=== PATIENT | male | born 1945 | race Asian ===

== ENCOUNTER 2017-03-02 05:27 | Emergency (ER) | payer OTHER ==
[~2017-03-02] VITALS: Ht 165.1 cm; Wt 72.6 kg
[~2017-03-02 05:27] MED LIST: [UNRECOGNIZED DRUG - REMARK]
--- NOTE | 2017-03-02 05:41 | NUR ---
BB SELF C/O ABD PAIN SINCE 0200 +N/V. PT AOX3 RR EVEN AND UNLABORED. NO SOB NOTED. NAD NOTED. PT NOT DIAPHORETIC AT THIS TIME. PT GOWNED AND PLACED ON MONITOR WAITING FOR MD JEFFREY.
--- NOTE | 2017-03-02 05:55 | NUR ---
IV STARTED ON RIGHT AC, GOOD BLOOD RETURNED, PATENT. 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
[2017-03-02] MEDS ORDERED: MORPHINE SULFATE INJ 4 MG/ML DISP.SYRIN ONE ×2 (06:05→06:29)
[2017-03-02] MEDS ORDERED: ONDANSETRON HCL/PF 4 MG/2 ML VIAL ONE (06:05)
--- NOTE | 2017-03-02 06:14 | NUR ---
LAB AT BEDSIDE FOR BLOOD CX DRAW
--- NOTE | 2017-03-02 06:28 | NUR ---
DR CHISHOLM AT BEDSIDE FOR EVAL.
[2017-03-02 06:30] LABS: BASOPHILS % (AUTO) 0.2 % (0.0-2.0); EOSINOPHILS % (AUTO) 0.2 % (0.0-6.0); HEMATOCRIT 47 % (39-51); HEMOGLOBIN 15.6 g/dL (13.5-17.5); LYMPHOCYTES # (AUTO) 1.4 /CMM (0.8-4.8); LYMPHOCYTES % (AUTO) 13.6 % (20.0-44.0); MEAN CORPUSCULAR HEMOGLOBIN 32 PG (26.0-33.0); MEAN CORPUSCULAR HGB CONC 33 g/dl (31.0-36.0); MEAN CORPUSCULAR VOLUME 97 fL (80-96); MONOCYTES # (AUTO) 0.5 /CMM (0.1-1.30); MONOCYTES % (AUTO) 4.8 % (2.0-12.0); NEUTROPHILS # (AUTO) 8.3 /CMM (1.8-8.9); NEUTROPHILS % (AUTO) 81.2 % (43.0-81.0); PLATELET COUNT (AUTO) 239 /CMM (150-450); RDW COEFFICIENT OF VARIATION 12.6 (11.5-15.0); RED BLOOD CELL COUNT(AUTO) 4.86 MIL/uL (4.5-6.0); WHITE BLOOD COUNT (AUTO) 10.2 K/uL (4.3-11.0)
[2017-03-02] MEDS ORDERED: IV NS 0.9% 1,000 ML BAG IV ONE ×2 (06:30→09:00)
[2017-03-02] MEDS ORDERED: ONDANSETRON HCL/PF 4 MG/2 ML VIAL IVP ONE (06:30)
[2017-03-02] MEDS ORDERED: MORPHINE SULFATE INJ 2 MG/ML DISP.SYRIN IV ONE ×2 (06:30→07:00)
[2017-03-02 06:42] LABS: CALCIUM, SERUM 9.8 mg/dL (8.5-10.1); CARBON DIOXIDE 31 mmol/L (21-32); CHLORIDE 102 mmol/L (98-107); GLUCOSE 163 mg/dL (74-106); POTASSIUM 3.6 mmol/L (3.5-5.1); SODIUM SERUM 142 mmol/L (136-145); UREA NITROGEN, BLOOD 13 mg/dL (7-18)
[2017-03-02 06:45] LABS: INR 0.95 (0.87-1.13); PROTHROMBIN TIME 9.9 SECS (9.5-12.7)
[2017-03-02 06:50] LABS: TROPONIN I < 0.017 ng/mL (0.00-0.056)
[2017-03-02 06:55] LABS: ALANINE AMINOTRANSFERASE 53 U/L (12-78); ALBUMIN 4.4 g/dL (3.4-5.0); ALKALINE PHOSPHATASE 59 U/L (46-116); ASPARTATE AMINOTRANSFERASE 30 U/L (15-37); BILIRUBIN,DIRECT 0.1 mg/dL (0.0-0.2); BILIRUBIN,TOTAL 0.6 mg/dL (0.2-1.0); LIPASE 148 U/L (73-393); TOTAL PROTEIN, SERUM 7.8 g/dL (6.4-8.2)
[2017-03-02] MEDS ORDERED: CT SWABBABLE VALVE TRANS SET 1 EA INFUS.SET MC ONE (06:57)
[2017-03-02] MEDS ORDERED: IOHEXOL-300 100 ML VIAL IV ONE (06:57)
[2017-03-02] MEDS ORDERED: IV NS 0.9% 500 ML IV ONE (06:57)
--- NOTE | 2017-03-02 07:02 | NUR ---
PT TO CT.
--- NOTE | 2017-03-02 07:10 | NUR ---
PT RETURNED FROM CT.
--- NOTE | 2017-03-02 07:22 | NUR ---
URINE COLLECTED. 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
--- NOTE | 2017-03-02 07:26 | NUR ---
REPORT GIVEN TO NINO PEREYRA FOR REGNIA.
--- NOTE | 2017-03-02 08:00 | NUR ---
RESTING QUIETLY, ASLEEP BUT EASILY AROUSABLE. NAD NOTED.
[2017-03-02 08:16] LABS: APPEARANCE,URINE SL CLOUDY (CLEAR); BILIRUBIN,URINE NEGATIVE (NEGATIVE); BLOOD, URINE NEGATIVE Ery/uL (NEGATIVE); COLOR,URINE YELLOW (YELLOW); KETONES,URINE NEGATIVE (NEGATIVE); LEUKOCYTE ESTERASE ,URINE NEGATIVE (NEGATIVE); NITRITE, URINE NEGATIVE (NEGATIVE); PH,URINE 7.5 (5.0-8.0); PROTEIN,URINE NEGATIVE (NEGATIVE); UGLUCOSE NEGATIVE (NEGATIVE); UROBILINOGEN,URINE 0.2 EU/dL (0.2)
--- NOTE | 2017-03-02 10:00 | NUR ---
RESTING QUIETLY, NAD NOTED. VSS. ALL NEEDS ATTENDED TO.
--- NOTE | 2017-03-02 11:49 | NUR ---
Patient discharged to home in stable condition. Written and verbal after care instructions given. Patient verbalizes understanding of instruction. IV removed. Catheter intact and site benign. Pressure and 4x4 applied to site. No bleeding noted.
[2017-03-02 11:51] VITALS: BP 140/93
== END 2017-03-02 11:51 | disposition home or self-care (01) ==
LOC: ER 05:29
DX: K57.92 Diverticulitis of intestine, part unspecified, without perforation or abscess without bleeding (principal); K56.7 Ileus, unspecified; E78.00 Pure hypercholesterolemia, unspecified
CPT/HCPCS: 36415; 74160; 80048; 80076; 81001; 83605 ×3; 83690; 84484; 85025; 85730; 87040 ×2; 96361; 96374; 96375; 96376; 99285; A4606; J2270 ×2; J2405; J7030 ×3; J7040 ×2; Q9967; 81000-TC; Z7610

== ENCOUNTER 2020-08-24 11:42 | Emergency (ER) | payer OTHER ==
[~2020-08-24] VITALS: Ht 165.1 cm; Wt 61.2 kg
[~2020-08-24 11:42] MED LIST changes: +ATOR10TA PO; +BUPR-54 PO; +SERT-437 PO; -[UNRECOGNIZED DRUG - REMARK]
--- NOTE | 2020-08-24 11:49 | NUR ---
[email or web address], from home, fell off backward from 3 steps ladder,-loc, bump at the back of the head, 6/10 pain scale. On room air, breathing evenly and unlabored. Connected to the monitor and pulse ox. Kept comfortable, will continue to monitor accordingly.
--- NOTE | 2020-08-24 11:50 | NUR ---
wheeled patient to ct accompanied by
--- NOTE | 2020-08-24 11:58 | NUR ---
patient came back from ct
[2020-08-24] MEDS ORDERED: ACETAMINOPHEN ES 500 MG TABLET ONE (12:18)
[2020-08-24 12:24] VITALS: BP 146/75
--- NOTE | 2020-08-24 12:24 | NUR ---
Patient discharged to home in stable condition. Written and verbal after care instructions given. Patient verbalizes understanding of instruction.IV removed. Catheter intact and site benign. Pressure and 4x4 applied to site. No bleeding noted.
[2020-08-24] MEDS ORDERED: ACETAMINOPHEN ES 500 MG TABLET PO ONE ×2 (12:30)
== END 2020-08-24 12:24 | disposition home or self-care (01) ==
LOC: ER 11:45
DX: S00.03XA Contusion of scalp, initial encounter (principal); Z79.899 Other long term (current) drug therapy; W11.XXXA Fall on and from ladder, initial encounter; Y93.89 Activity, other specified; Y92.098 Other place in other non-institutional residence as the place of occurrence of the external cause; Y99.8 Other external cause status
CPT/HCPCS: 70450-TC